=== PATIENT | male | born 1940 | race Caucasian/White ===

== ENCOUNTER 2021-01-25 09:00 | Day surgery (SDC) | payer MEDICARE, OTHER ==
[~2021-01-25 09:00] MED LIST: Acetaminophen 325 MG Tab PO SCH; Lactated Ringers 1,000 ML IV SCH; Lidocaine 1%/Sod Bicarbonate in NS 8.4% 1 ML Syringe IDERM PRN; Morphine 8 MG, EPINEPHrine 0.3 MG, Cefuroxime 750 MG, Ketorolac 30 MG, Sodium Chloride ... PRN; Pregabalin 25 MG Cap PO SCH; Sodium Chloride 0.9% 10 ML Syringe FLUSH PRN; oxyCODONE ER 10 MG TAB.ER PO SCH
--- NOTE | 2021-01-25 10:05 | PCM.PREANE ---
Preanesthetic Assessment - Anesthesia/Transfusion/Family Hx Anesthesia History: Prior Anesthesia Without Reaction Family History of Anesthesia Reaction: No Transfusion History: No Prior Transfusion(s) Intubation History: Unknown - Review of Systems General: No Symptoms Pulmonary: No Symptoms Cardiovascular: No Symptoms Gastrointestinal: No Symptoms Neurological: No Symptoms Other: Reports: Easy Bruising - Physical Assessment NPO Status Date: 01/24/21 Vital Signs: Last Vital Signs Temp 36.6 C 01/25/21 09:23 Pulse Resp BP Pulse Ox ASA Class: 2 Mental Status: Alert & Oriented x3 Dentition: Reports: Dentures (upper) Thyro-Mental Finger Breadths: 3 Mouth Opening Finger Breadths: 3 ROM/Head Extension: Full Lungs: Clear to Auscultation, Normal Respiratory Effort Cardiovascular: Regular Rate, Regular Rhythm - Allergies Allergies/Adverse Reactions: Allergies Allergy/AdvReac Type Severity Reaction Status Date / Time No Known Allergies Allergy Verified 01/24/21 15:41 - Acknowledgements Anesthesia Type Planned: Spinal, Regional Block Pt an Appropriate Candidate for the Planned Anesthesia: Yes Alternatives and Risks of Anesthesia Discussed w Pt/Guardian: Yes Pt/Guardian Understands and Agrees with Anesthesia Plan: Yes PreAnesthesia Questionnaire HEENT History: Reports: Allergic Rhinitis Cardiovascular History: Reports: None Respiratory History: Reports: None Gastrointestinal History: Reports: GERD Genitourinary History: Reports: None 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 LINING 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 History: Reports: None Musculoskeletal History: Reports: Osteoarthritis, Other (See Below) Other Musculoskeletal History: left hallux rigidus, knee pain, chronic pain Neurological History: Reports: None Psychiatric History: Reports: None Endocrine/Metabolic History: Reports: None Hematologic History: Reports: None Immunologic History: Reports: None Oncologic (Cancer) History: Reports: None, Prostate Dermatologic History: Reports: None - Past Surgical History Head Surgeries/Procedures: Reports: None HEENT Surgical History: Reports: Cataract Surgery Cardiovascular Surgical History: Reports: None Respiratory Surgical History: Reports: None GI Surgical History: Reports: Colonoscopy, Hernia Repair/Other Male Surgical History: Reports: Prostatectomy Endocrine Surgical History: Reports: None Neurological Surgical History: Reports: None Musculoskeletal Surgical History: Reports: Arthroscopic Knee Oncologic Surgical History: Reports: None Dermatological Surgical History: Reports: None - SUBSTANCE USE Tobacco Use Status *Q: Former Tobacco User - HOME MEDS Home Medications: Home Meds Astaxanthin 4 mg PO DAILY 01/24/21 [History] Chlorpheniramine Maleate [Allergy-Time] 4 mg PO ASDIRECTED PRN 01/24/21 [History] Cholecalciferol (Vitamin D3) [Vitamin D3] 2,000 unit PO DAILY 01/24/21 [History] Multivitamin 1 tab PO DAILY 01/24/21 [History] Triamcinolone Acetonide [Nasacort] 1 dose NASBOTH DAILY 01/24/21 [History] Aspirin [Aspirin EC] 325 mg PO BID #60 tab 01/25/21 [Rx] oxyCODONE 5 - 10 mg PO Q4H PRN #40 tab 01/25/21 [Rx] - CURRENT (IN HOUSE) MEDS Current Meds: Current Medications Acetaminophen (Acetaminophen 325 Mg Tab) 975 mg PO ONETIME KAREN Stop: 01/25/21 15:00 Last Admin: 01/25/21 09:23 Dose: 975 mg Documented by: Morphine Sulfate 8 mg/Epinephrine HCl 0.3 mg/Cefuroxime Sodium 750 mg/Ketorolac Tromethamine 30 mg/Sodium Chloride 7.9 ml 0 mg .XX ASDIRECTED PRN PRN Reason: Pain Stop: 01/25/21 18:00 Lactated Ringer's (Ringers, Lactated) 1,000 mls @ 125 mls/hr IV ASDIRECTED KAREN Stop: 01/25/21 23:00 Lidocaine/Sodium Bicarbonate (Lidocaine 1%/Sod Bicarbonate In Ns 8.4% 1 Ml Syringe) 0.25 ml IDERM ONETIME PRN PRN Reason: Prior to IV Start Stop: 01/25/21 18:00 Oxycodone HCl (Oxycodone Er 10 Mg Tab.Er) 10 mg PO ONETIME KAREN Stop: 01/25/21 15:00 Last Admin: 01/25/21 09:24 Dose: 10 mg Documented by: Pregabalin (Pregabalin 25 Mg Cap) 50 mg PO ONETIME KAREN Stop: 01/25/21 15:00 Last Admin: 01/25/21 09:24 Dose: 50 mg Documented by: Sodium Chloride (Sodium Chloride 0.9% 10 Ml Syringe) 10 ml FLUSH ASDIRECTED PRN PRN Reason: Keep Vein Open Stop: 01/25/21 18:00
[2021-01-25] MEDS ORDERED: ceFAZolin 1 GM Vial ONE (10:15)
[2021-01-25] MEDS ORDERED: Propofol 200 MG/20 ML SDV ONE ×2 (10:15→11:53)
[2021-01-25] MEDS ORDERED: Lidocaine 1% 4 ML ONE (10:15)
[2021-01-25] MEDS ORDERED: Vancomycin 1 GM SDV ONE ×2 (10:24→10:45)
[2021-01-25] MEDS ORDERED: Ropivacaine 0.5% 5 MG/ML 30 ML SDV ONE (10:42)
[2021-01-25] MEDS ORDERED: EPINEPHrine 1 MG/ML SDV ONE (10:43)
[2021-01-25] MEDS ORDERED: Lactated Ringers 1,000 ML ONE (11:43)
[2021-01-25] MEDS ORDERED: fentaNYL 100 MCG/2 ML SDV IVPUSH PRN (11:51)
[2021-01-25] MEDS ORDERED: Ondansetron 4 MG/2 ML SDV IVPUSH PRN (11:51)
[2021-01-25] MEDS ORDERED: Bupivacaine 0.25% 10 ML SDV ONE (12:54)
[2021-01-25] MEDS ORDERED: Triamcinolone Acetonide 40 MG/ML 1 ML SDV ONE (12:54)
[2021-01-25] MEDS ORDERED: Ondansetron 4 MG/2 ML SDV ONE (12:57)
--- NOTE | 2021-01-25 13:12 | PCM.POSTAN ---
POST ANESTHESIA ASSESSMENT - MENTAL STATUS Mental Status: Alert, Oriented - VITAL SIGNS Vital Signs: Last Vital Signs Temp 36.2 C 01/25/21 09:30 Pulse 66 01/25/21 09:30 Resp 16 01/25/21 09:30 BP 146/84 H 01/25/21 09:30 Pulse Ox 99 01/25/21 09:30 - RESPIRATORY Respiratory Status: Respiratory Rate WNL, Airway Patent, O2 Saturation Stable, Supplemental Oxygen - CARDIOVASCULAR CV Status: Pulse Rate WNL, Blood Pressure Stable - GASTROINTESTINAL GI Status: No Symptoms - PAIN Pain Score: 0 - POST OP HYDRATION Hydration Status: Adequate & Stable
[2021-01-25] MEDS ORDERED: oxyCODONE 5 MG Tab PO PRN (13:26)
--- NOTE | 2021-01-25 13:32 | PCM.SN.2 ---
- Free Text/Narrative Note: Right selective femoral nerve block at the adductor canal for post-procedure pain control under US guidance requested by Dr. Mccullough. Time Out: 1310 Start: 1310 End: 1320 Chart reviewed. Consent signed. Questions answered. Appropriate monitors applied. Time out performed. Right mid-shaft femur identified with ultrasound, scanning medially of femur, the femoral artery in the adductor canal visualized, and the femoral nerve located laterally to the artery. The skin was prepped lateral to the ultrasound probe with chlorahexadine times two. The 21ga 4 insulated block needle was inserted under direct ultrasound guidance into the adductor canal. 20mL of 0.5% ropivacaine with 1:200,000 epinephrine was injected circumferentially around the nerve with intermittent negative aspiration noted. Patient tolerated the procedure well. Sterile technique noted along with sterile gloves, mask, and sterile probe cover. See picture on progress note and vital signs on nurses notes. Block completed in PACU. Bogdan Lanza CRNA Time Documentation
--- NOTE | 2021-01-25 14:29 | CR ---
Right knee: AP and crosstable lateral views of the right knee were obtained. Comparison: Prior CT right knee study of 01/12/21. Right knee prosthesis is noted. Components are aligned. Soft tissue air is seen. Patellar prosthesis is also noted. Underlying bony structures show nothing acute. Impression: 1. Satisfactory postoperative radiographic appearance of recently placed right knee prostheses. Diagnostic code #2
--- NOTE | 2021-01-25 14:37 | PCM48HPAN ---
Post Anesthesia Note - EVALUATION WITHIN 48HRS OF ANESTHETIC Vital Signs in Normal Range: Yes Patient Participated in Evaluation: Yes Respiratory Function Stable: Yes Airway Patent: Yes Cardiovascular Function Stable: Yes Hydration Status Stable: Yes Pain Control Satisfactory: Yes Nausea and Vomiting Control Satisfactory: Yes Mental Status Recovered: Yes Vital Signs: Last Vital Signs Temp 36.2 C 01/25/21 09:30 Pulse 66 01/25/21 09:30 Resp 16 01/25/21 09:30 BP 146/84 H 01/25/21 09:30 Pulse Ox 99 01/25/21 09:30 - COMMENTS/OBSERVATIONS Free Text/Narrative:: no anesthesia complications noted
--- NOTE | 2021-02-06 17:27 | PCM.OPNOTE ---
- General Post-Op/Procedure Note Date of Surgery/Procedure: 01/25/21 Operative Procedure(s): right total knee arthroplasty with [employer] and left knee corticosteroid injection Pre Op Diagnosis: bilateral knee osteoarthrosis Post-Op Diagnosis: Same Anesthesia Technique: Local, MAC, Spinal Primary Surgeon: Quique Mccullough Anesthesia Provider: Keira Stone [employer] Technician: Alyce Perez [employer] Retro[employer] Technician: Anna Marie Manuel EBL in mLs: 75 Complications: None Condition: Good Free Text/Narrative:: 10/01 10 35x10
--- NOTE | 2021-02-08 07:47 | OR ---
DATE OF OPERATION: 01/25/2021 SURGEON: Quique Mccullough MD OPERATION PERFORMED: Right total knee arthroplasty with [employer] robot[employer] and left knee corticosteroid injection. PREOPERATIVE DIAGNOSIS: Bilateral knee osteoarthrosis. POSTOPERATIVE DIAGNOSIS: Bilateral knee osteoarthrosis. ANESTHESIA: Local MAC with spinal. ANESTHESIA PROVIDER: Keira Stone CRNA SALES REPRESENTATIVES: Alyce Perez PA-C; and Anna Marie Manuel LPN. ESTIMATED BLOOD LOSS: 75 mL. COMPLICATIONS: None. CONDITION: Stable. IMPLANTS: 1. [employer] size 6 press-fit CR femur. 2. [employer] size 6 press-fit tibial baseplate. 3. [employer] size 6 10 mm CS polyethylene insert. 4. [place] size 35 x 10 mm press-fit asymmetric patella. DESCRIPTION OF PROCEDURE: The patient was identified in the preoperative holding area. Proper site was marked and identified by the surgeon. The patient was taken back to the operative theater, where after adequate anesthesia, the patient had a nonsterile tourniquet applied to the right lower extremity. Right lower extremity was then sterilely prepped and draped in the usual sterile fashion. OR time-out was performed. The patient received 2 g IV Ancef. Leg benitez was applied to the right lower extremity. Right lower extremity was exsanguinated. Tourniquet was insufflated to 250 mmHg. Standard anterior incision was made and a medial parapatellar arthrotomy was created. Deep fibers of the MCL were raised and anterior fat pad was resected. Attention was turned to the patella. Patella measured 25 and was resected to a 14 for a 35 x 10 mm patella. Drill holes were drilled, found to be adequate. Two 4.0 Schanz pins were then placed intra- incisionally on the femur for the [employer] robotic array. Two more were placed 3 fingerbreadths distal to the tibial tubercle for the tibial [employer] robotic array. Checkpoints were placed on the tibia and the femur. Hip center rotation was obtained. Medial and lateral malleoli were marked and the 2 checkpoints were marked. 40 points were then obtained up both the femur and the tibia for the [employer] robotic plan. The patient's knee was brought into full extension, and at 90 degrees of flexion, varus valgus stresses were applied. At this time, the [employer] robotic array for 19 mm flexion extension gaps was undertaken. Straight saw blade was brought in. The tibial cut; anterior femoral chamfer cut, and the posterior femoral cuts were completed. A saw blade was switched and the distal femoral cut and posterior chamfer cuts were completed. All bony fragments were removed. Medial and lateral meniscus were resected. Any posterior osteophytes were removed. At this time, the size 6 trial baseplate was placed on the tibia. Size 6 trial femur was placed on the femur and a size 9 trial was placed. The patient had just minor amount of varus valgus play, so a 10 mm was placed and he had no varus-valgus instability. Full range of motion. No signs of liftoff on the femur. At this time, the femoral drill holes were drilled. Tibia was stamped and drilled in proper rotation. All trial implants were removed. The size 6 press-fit tibial baseplate was impacted into place. Size 6 femur was impacted into place. 10 mm CS polyethylene insert was impacted into place and a 35 x 10 mm patella was press-fit into place. Tourniquet was deflated. Bleeders were cauterized. 1 L pulse lavage irrigation with Ancef was irrigated through the knee along with 400 mL IrriSept irrigation. Periarticular injection was completed. Topical tranexamic acid and vancomycin powder were applied. A #2 barbed suture was used for closure of the medial parapatellar arthrotomy. 2-0 Vicryl as well as Stratafix was used for subcutaneous closure and Prineo was used for skin closure. Please note, all [employer] robotic arrays and checkpoints were removed before closure. After this was completed, the left knee underwent a corticosteroid injection with 2 mL of 40 mg Kenalog, 4 mL of 0.25% Marcaine. MMODAL /[id number]
== END 2021-01-25 15:44 | disposition home or self-care (01) ==
LOC: JD.SDS 09:00
PROVIDERS: ATTEND Orthopaedic Surgery
DX: M17.0 Bilateral primary osteoarthritis of knee (principal); G89.18 Other acute postprocedural pain; K21.9 Gastro-esophageal reflux disease without esophagitis; Z79.899 Other long term (current) drug therapy; Z87.891 Personal history of nicotine dependence; Z20.822 Contact with and (suspected) exposure to COVID-19
CPT/HCPCS: 20610; 27447; 73560; 97116; 97161; A9270; C1713; C1776; J0171; J0690; J0697; J1885; J2270; J2405; J2704; J2795; J3301; J3370; J3490; J7120; 01402; 64450; 76942; 99100

== ENCOUNTER → 2021-05-31 | Day surgery (SDC) | payer MEDICARE, OTHER ==
[~2021-05-31] MED LIST changes: +EPINEPHrine 1 MG/ML SDV ONE; +Lactated Ringers 1,000 ML ONE; +Lidocaine 1% 4 ML ONE; +Midazolam 1 MG/ML 2 ML SDV ONE; +Ondansetron 4 MG/2 ML SDV IVPUSH PRN; +Propofol 200 MG/20 ML SDV ONE; +Ropivacaine 0.5% 5 MG/ML 30 ML SDV ONE; +Sodium Chloride 0.9% 10 ML Syringe FLUSH SCH; +Vancomycin 1 GM SDV ONE; +ceFAZolin 1 GM Vial ONE; +ePHEDrine 50 MG/ML SDV ONE; +fentaNYL 100 MCG/2 ML SDV IVPUSH PRN; +fentaNYL 100 MCG/2 ML SDV ONE; +oxyCODONE 5 MG Tab PO ONE; +oxyCODONE 5 MG Tab PO PRN
[2021-05-31] MEDS: Morphine 8 MG, EPINEPHrine 0.3 MG, Cefuroxime 750 MG, Ketorolac 30 MG, Sodium Chloride ... PRN ×10 (09:19→09:51)
== END | disposition home or self-care (01) ==
LOC: JD.SDS 07:51
PROVIDERS: ATTEND Orthopaedic Surgery
DX: M17.12 Unilateral primary osteoarthritis, left knee (principal); E78.00 Pure hypercholesterolemia, unspecified; Z79.899 Other long term (current) drug therapy; Z79.82 Long term (current) use of aspirin; Z98.890 Other specified postprocedural states
CPT/HCPCS: 27447; 73560; 97116; 97161; A9270; C1713; C1776; J0171; J0690; J0697; J1885; J2250; J2270; J2704; J2795; J3010; J3370; J7120; 01402; 64450; 76942; 99100